=== PATIENT | male | born 2005 | race Two or more races ===

== ENCOUNTER 2025-02-27 16:53 | Emergency (ER) | payer MEDICAID, SELFPAY ==
[2025-02-27 17:17] VITALS: BP 144/97; PULSE 79; RESP 18; TEMP 36.9; O2SAT 99; BMI 26.6
--- NOTE | 2025-02-27 17:20 | EDNOTE_ITS ---
<Statement entered by Edith Maya MD - 03/19/25 06:20> As co-signing physician, I was present and available for consult prn. I concur with the plan and care as documented by the midlevel provider. Lower Extremity Injury RME/HPI General Chief Complaint: Extremity Injury, Lower Stated Complaint: RIGHT KNEE PAIN, DISLOCATED AT WORK Time Seen by Provider: 02/27/25 17:18 Arrival date/time: 02/27/25 16:53 RME / HPI RME / HPI Narrative: Healthy 20-year-old male complaining of right knee pain after twisting it while dancing at work just prior to arrival where he felt like his kneecap dislocated and as he sat down he pushed it back into place about an hour prior to arrival however now when he is walking he has got a throbbing pain. Denies numbness, tingling, weakness, and fever. Related Data Previous Rx's ?Medication ?Instructions ?Recorded naproxen 500 mg tablet 500 mg PO BID PRN pain #14 t abs 02/27/25 Allergies Allergy/AdvReac Type Severity Reaction Status Date / Time No Known Allergies Allergy Verified 02/27/25 16:56 ED Exam Narrative Physical exam: Constitutional: Vital Signs Reviewed. Well appearing. No acute distress. Not toxic appearing. Head: Normocephalic, atraumatic. Eyes: Conjunctiva clear. ENT: Mucous membranes moist. Neck: Trachea midline. Normal range of motion. No nuchal rigidity. Respiratory: Normal effort. No respiratory distress or accessory muscle use. Neuro: Alert and oriented. Speech normal. No focal gross motor or sensory deficits observed. Skin: Warm, dry, normal color. Extremity: Positive patellar apprehension test for right knee. Positive mild effusion. patient has painless range of motion from 20-120 degrees however he does have pain past those limits with flexion and extension. Negative erythema, warmth, ecchymosis. Compartments remain soft. Posterior tibialis pulse 2+ regular rate and rhythm. Psych: Pleasant. Normal affect. Cooperative. Course Quality Measures none Orders Category Date Time Status Apply knee immobilizer NOW Care 02/27/25 17:25 Active Crutches .NOW Care 02/27/25 17:25 Active XR knee RT 3V Stat Exams 02/27/25 17:23 Completed Ibuprofen Tab [Motrin Tab] Med 02/27/25 20:07 Once 800 mg PO X1 ONE Reevaluation(s) Reevaluation #1: At the time of reassessment, the patient remains alert and oriented ?3 with GCS 15. Vitals are normal, pain is controlled, and the patient is tolerating oral intake without nausea or vomiting. The patient is agreeable to discharge and verbalizes understanding of the diagnosis, studies, treatment plan, medications (including side effects/precautions), and strict ER return precautions as discussed in the ED. All concerns were addressed, and the patient is comfortable with the plan. Vital Signs Vital signs: Vital Signs Temperature 98.4 F 02/27/25 17:17 Pulse Rate 79 02/27/25 17:17 Respiratory Rate 18 02/27/25 17:17 Blood Pressure 144/97 H 02/27/25 17:17 Pulse Oximetry (%) 99 02/27/25 17:17 Oxygen Delivery Method Room Air 02/27/25 17:17 Extremity Injury, Lower MDM Narrative MDM Narrative:: MDM: This patient has been diagnosed with a soft tissue injury resulting in an effusion likely from an internal knee derrangement vs patella dislocation s/p self reduction with concern for possible strain vs sprain vs occult f/x or dislocation that does not have neurovascular compromise. There is no infectious e/o. Patient instructions include the recommendation to decrease activities, be weight bearing as tolerated, wear knee immobilizer and to ice and elevate the injured limb. Extremity remains DNVI with soft compartments at time of discharge. Plan for pt to f/u with pmd and ortho in 1-2 days, strict ER return precautions advised Patient data External records reviewed:: None Clinical information provided by:: patient Social determinants that could affect healthcare access:: none Patient has the following chronic illnesses:: As noted How is presenting disease/condition affected by chronic disease/condition?: no chronic disease Evaluation data The following diagnostics were reviewed and interpreted by me:: other (specify) Lab and/or radiology exams considered but not ordered:: Additional Labs and radiology considered, but not ordered as they were not clinically indicated at this time. Interpretation Summary: As noted Medications / Prescriptions Medications or Prescriptions considered but not ordered:: I considered prescription management (both outpatient prescriptions AND drug treatment in the ER) and decided that this was necessary and was prescribed as charted. Medication administrations:: Medication Administration History Ibuprofen (Ibuprofen Tab 400 Mg Tablet) 800 mg PO X1 ONE Stop: 02/27/25 20:08 Last Admin: 02/27/25 20:12 Dose: Not Given Documented By: CHRIS Non-Admin Reason: Patient Refused As noted Consultations Consultation(s) initiated? (list below): No Diagnosis Extremity Injury, Lower Differential Diagnosis: acute internal derangement of knee Most likely diagnosis given after review of the tests above:: Internal knee derangement Admission Indicated Admission indicated?: not indicated Explain why admission is indicated or not indicated:: Escalation of care including admission/observation considered but I decided to discharge because based on the overall clinical presentation, and after consideration of the patient's course in the emergency department and plan for outpatient management, I believe that neither further observation nor inpatient care is required at this time. Admission Request Was there a request for admission?: No Disposition Plan Disposition Plan: Discharge Discharge Attestation Discharge Attestation: The patient and all family members were given an opportunity to ask questions and understood the discharge instructions. Discharge instructions specifically effects, indications for sooner follow up or return to the emergency department, and the expected course of current diagnosis. Patient condition: Stable Discharge Plan Plan Patient Disposition: HOME (Self Care) Patient condition on transfer: Stable Prescriptions/Referrals Prescriptions/Med Rec: New naproxen 500 mg tablet 500 mg PO BID PRN (Reason: pain) Qty: 14 0RF Rx Instructions: take wtih food and 8 oz of water Referrals: Jamison Candelaria FNP-C [Primary Care Provider] - In 1 week Problem List Clinical Impression: Internal derangement of knee Patient/Caregiver Discharge Instructions Education Materials: How Your Knee Works Additional Instructions: Follow up with your primary medical doctor and an orthopedic doctor within 24 hours. Return to the Emergency Room immediately for any new, worsening, continuing symptoms or any concerns at all. Return to the Emergency Room within 24 hours if you are unable to follow up with your primary medical doctor and an orthopedic doctor within 24 hours. Print Language: Dominican Stand Alone Forms: Hollie Award Info., Patient Portal Info Letter LISANDRO/CHAYITO Supervising Physician LISANDRO/CHAYITO Supervising Physician: Dr. Steffen GLASGOW Attestation MD Attestation Dr. Bourne
--- NOTE | 2025-02-27 17:23 | XR_ITS ---
Examination: Knee, right, 3 views Technique: Knee AP, lateral, oblique 3 views Date and time of exam: February 27, 2025, 1723 hours INDICATIONS: Work injury to the knee today, knee pain. FINDINGS: No acute fracture No dislocation Small to moderate knee effusion IMPRESSION: No fracture Small to moderate knee effusion
[2025-02-27 20:12] VITALS: RESP 18; O2SAT 100
== END 2025-02-27 20:13 | disposition home or self-care (01) ==
PROVIDERS: Emergency Provider Emergency Medicine
DX: M23.91 Unspecified internal derangement of right knee (principal)
CPT/HCPCS: 73562; 99282